=== PATIENT | male | born 1955 | race Caucasian/White ===

== ENCOUNTER 2016-07-11 06:33 | Inpatient (IN) | payer BC ==
[~2016-07-11] VITALS: Ht 180.3 cm; Wt 83.7 kg
[~2016-07-11 06:33] MED LIST: ASPIR 8181 MG PO; FER300 PO; GOOD SENSE OMEP20 MG PO; LISINOPRIL10 MG PO; METOPROLOL TART25 M1 PO; PRESTIQ PO; SIMVASTATIN10 M1 PO; TRAMADOL HCL50 MG PO; ZES10 PO
[2016-07-11 07:20] LABS: BASOPHIL % 0.5 % (0-2); PLATELET COUNT 247 x10^3mcL (130-400); RED CELL DISTRIBUTION WIDTH 13.7 % (11.5-14.5)
[2016-07-11 07:26] LABS: CALCIUM 9.3 mg/dL (8.5-10.1); CARBON DIOXIDE 24.5 mmol/L (21-32); CHLORIDE SERUM 102 mmol/L (98-107); GFR1 > 60 mL/min; GLUCOSE SERUM 117 mg/dL (74-106); SODIUM SERUM 138 mmol/L (136-145)
[2016-07-11 07:31] LABS: ALBUMIN 3.9 g/dL (3.4-5.0); ALKALINE PHOSPHATASE 92 U/L (46-116); ALT/SGPT 53 U/L (16-63); AST/SGOT 28 U/L (15-37); LIPASE 235 IU/L (73-393); TOTAL PROTEIN, SERUM 7.3 g/dL (6.4-8.2)
[2016-07-11] MEDS ORDERED: ZESTRIL5 MG PO (07:58)
[2016-07-11] MEDS ORDERED: LIPI10 PO (07:58)
[2016-07-11 08:33] LABS: CHOLESTEROL/HDL RATIO 2.6; PHOSPHOROUS 4.2 mg/dL (2.5-4.9)
[2016-07-11 08:37] LABS: T3 TOTAL 1.12 ng/mL
[2016-07-11 08:42] LABS: FREE T4 0.9 ng/dL (0.76-1.46); FREE THYROXINE INDEX 2.5 ug/dL (1.4-4.5)
[2016-07-11 10:34] VITALS: BP 145/85
[2016-07-11 14:00] VITALS: BP 121/78
[2016-07-11 17:29] VITALS: BP 115/63
[2016-07-11 21:21] VITALS: BP 124/72
[2016-07-11 21:22] LABS: microscopic required? NO
[2016-07-11 21:30] LABS: urine erythrocyte NEGATIVE (NEGATIVE)
[2016-07-11 21:39] LABS: AMPHETAMINE QUAL UR NONE DETECTED (NEG <=1000)
[2016-07-12 05:27] VITALS: BP 122/71
[2016-07-12 05:59] LABS: BASOPHIL % 0.5 % (0-2); PLATELET COUNT 232 x10^3mcL (130-400); RED CELL DISTRIBUTION WIDTH 13.9 % (11.5-14.5)
[2016-07-12 06:19] LABS: CALCIUM 8.6 mg/dL (8.5-10.1); CARBON DIOXIDE 26.1 mmol/L (21-32); CHLORIDE SERUM 108 mmol/L (98-107); CREATININE SERUM 0.9 mg/dL (0.7-1.3); GFR1 > 60 mL/min; GLUCOSE SERUM 99 mg/dL (74-106); POTASSIUM SERUM 4.2 mmol/L (3.5-5.1); SODIUM SERUM 142 mmol/L (136-145)
[2016-07-12 10:36] VITALS: BP 117/73
[2016-07-12 13:34] VITALS: BP 128/83
[2016-07-12] MEDS ORDERED: MECLIZINE HCL12.5 MG PO (16:18)
[2016-07-12 16:24] VITALS: BP 128/83
[2016-07-12 17:01] VITALS: BP 123/77
== END 2016-07-12 17:13 | disposition home or self-care (01) | DRG 74 ==
LOC: ED 06:33 → DU 07:40
PROVIDERS: Emergency Medicine; ADMIT Family Medicine
DX: G90.8 Other disorders of autonomic nervous system (principal); J98.11 Atelectasis; E78.00 Pure hypercholesterolemia, unspecified; F32.9 Major depressive disorder, single episode, unspecified; I10 Essential (primary) hypertension; Z95.5 Presence of coronary angioplasty implant and graft; Z83.3 Family history of diabetes mellitus; Z82.3 Family history of stroke; Z82.49 Family history of ischemic heart disease and other diseases of the circulatory system; Z80.9 Family history of malignant neoplasm, unspecified; I25.2 Old myocardial infarction; Z82.0 Family history of epilepsy and other diseases of the nervous system
CPT/HCPCS: 83880; 84439; 94150; C9113; J7030; J8597; Q0092

== ENCOUNTER 2018-09-29 04:17 | Observation (INO) | payer BC ==
[~2018-09-29] VITALS: Ht 177.8 cm; Wt 85.9 kg
[~2018-09-29 04:17] MED LIST changes: +LIPI10 PO; +MECLIZINE HCL12.5 MG PO; +ZESTRIL5 MG PO
[2018-09-29 04:27] VITALS: Ht 177.8 cm; Wt 85.9 kg
--- NOTE | 2018-09-29 05:52 | NUR ---
PT PRESENTS TO ED FOR EVAL OF NAUSEA, ANXIETY AND GENERALIZED BACK PAIN X2 HOURS; STS WOKE UP AT 03:30 WITH THESE SYMPTOMS. PT STS ALSO CHECK HIS BP AT HOME AND IT WAS 162/97, 166/90, AND 162/98 AT 03:58 ON THE L ARM. AT THIS TIME PT C/O BACK PAIN, RATES 7/10, CONSTANT AND PRESSURE LIKE AT THIS TIME. ALSO C/O NAUSEA, STS ANXIETY HAS CALMED SOMEWHAT. ON INITIAL CONTACT PT AAOX4, GCS 15. RESP E/U, LUNG SOUNDS CTAB, S1 S2 AUSCULTATED. DENIES CP. ABDOMEN SOFT/NONTENDER/NONDISTENDED. APPEARS IN NO DISTRESS. MOVES ALL EXTREMITIES. SKIN W/D/I. PT PLACED ON CM AND PULSE OX, VSS AT THIS TIME. AWAITING MSE.
--- NOTE | 2018-09-29 06:39 | NUR ---
DR KEITA AT BEDSIDE
--- NOTE | 2018-09-29 06:57 | NUR ---
LAB AT BEDSIDE FOR BLOOD DRAW.
--- NOTE | 2018-09-29 07:03 | NUR ---
AMBULATORY TO RESTROOM TO OBTAIN URINE SPECIMEN
[2018-09-29 07:13] LABS: microscopic required? NO
[2018-09-29 07:18] LABS: BASOPHIL % 0.3 % (0-2); PLATELET COUNT 222 x10^3mcL (130-400); RED CELL DISTRIBUTION WIDTH 12.4 % (11.5-14.5)
--- NOTE | 2018-09-29 07:21 | NUR ---
PT SITTING UP IN BED, IN NAD. RESP EVEN AND UNLABORED, ON RA @ 95%, DENIES ANY SOB OR CP AT THIS TIME. SKIN W/D/I, MEDICATED ORDERED. WILL CONT TO MONITOR.
[2018-09-29 07:25] LABS: urine erythrocyte NEGATIVE (NEGATIVE)
[2018-09-29 07:28] LABS: CALCIUM 8.5 mg/dL (8.5-10.1); CARBON DIOXIDE 23.3 mmol/L (21-32); CHLORIDE SERUM 104 mmol/L (98-107); GFR1 > 60 mL/min; GLUCOSE SERUM 129 mg/dL (74-106); POTASSIUM SERUM 4.2 mmol/L (3.5-5.1); SODIUM SERUM 139 mmol/L (136-145)
--- NOTE | 2018-09-29 07:31 | NUR ---
DR FLANAGAN AWARE THAT PT REFUSED NITRO, STATESHE HAS NO CHEST PAIN.
[2018-09-29 07:37] LABS: AMPHETAMINE QUAL UR NONE DETECTED (See below)
[2018-09-29 07:41] LABS: ALBUMIN 3.6 g/dL (3.4-5.0); ALKALINE PHOSPHATASE 75 U/L (46-116); ALT/SGPT 43 U/L (16-63); AST/SGOT 27 U/L (15-37); BILIRUBIN TOTAL 0.6 mg/dL (0.20-1.00); HDL CHOLESTEROL 40 mg/dL (40-60); LIPASE 131 IU/L (73-393); T4(THYROXINE) 6.1 ug/dL (4.7-13.3); TOTAL PROTEIN, SERUM 6.7 g/dL (6.4-8.2)
[2018-09-29 07:43] LABS: CHOLESTEROL 122 mg/dL (<200)
--- NOTE | 2018-09-29 08:29 | NUR ---
NO ACUTE CHNAGES, PT WITH EYES CLOSED, IN NAD.
--- NOTE | 2018-09-29 09:33 | NUR ---
ADMIT ORDER RECIEVED FROM DR GUO,
--- NOTE | 2018-09-29 10:17 | NUR ---
REPORT GIVEN TO JOHN RN, UPDATED ON STATUS, LABS AND VITALS.
[2018-09-29] MEDS ORDERED: TOPROL XL25 MG PO (10:41)
--- NOTE | 2018-09-29 11:15 | NUR ---
RECEIVED PT FROM ED, A/A/OX4 DENIES WOOD. RESP EVEN AND UNLABORED WITH CLEAR BREATH SOUNDS BILAT. DENIES ANY SOB/CP/PRESSURE AT THIS TIME. PLACED ON TELE #29 SHOWING NSR HR IN 60S. NO EDEMA NOTED WITH PALPABLE PERIPHERAL PULSES. IV SL TO RAC. ABD SOFT, NONTENDER WITH ACTIVE BS X4. DENIES ANY N/V AT THIS TIME. VOIDING FREELY AND AMBULATORY. ORIENTED TO ROOM AND CALL LIGHT SYSTEM. CALL LIGHT IN REACH NEEDS ATTENDED TO.
[2018-09-29 11:25] VITALS: BP 107/64
[2018-09-29 18:15] VITALS: BP 114/68
--- NOTE | 2018-09-29 18:39 | NUR ---
PT RESTING AT THIS TIME. DENIES ANY DISCOMFORT. NO EPISODES OF CP REPORTED. WITH SCHEDULED [facility] AT 1130 AM TOMORROW. MADE AWARE OF CLEAR LIQUID BREAKFAST DIET. CALL LIGHT IN REACH NEEDS ATTENDED TO.
--- NOTE | 2018-09-29 19:28 | NUR ---
RECEIVED PT FROM PREVIOUS SHIFT. PT A/OX4. DENIES PAIN. DENIES SOB ON RA. IV PATENT AND INFUSING NS AT 80ML/HR WITH NO S/S OF INFILTRATION. FAMILY AT BEDSIDE. CALL LIGHT WITHIN REACH, BED IN LOW POSITION. WILL CONTINUE TO MONITOR.
[2018-09-29 20:51] VITALS: BP 113/70
--- NOTE | 2018-09-29 22:07 | NUR ---
PT C/O 06/19 THROBBING WOOD. TYLENOL GIVEN PO PER EMAR.
--- NOTE | 2018-09-30 00:51 | NUR ---
PT RESITNG IN NO ACUTE DISTRESS. RR EVEN AND UNLABORED. CALL LIGHT WITHIN REACH, BED IN LOW POSITION. CALL LIGHT WITHIN REACH, BED IN LOW POSITION. WILL CONTINUE TO MONITOR.
[2018-09-30 05:31] VITALS: BP 112/72
[2018-09-30 07:11] LABS: CHOLESTEROL/HDL RATIO 3.2
[2018-09-30] MEDS ORDERED: NIT0.4 SL (08:02)
[2018-09-30 08:24] VITALS: BP 118/72
--- NOTE | 2018-09-30 11:53 | NUR ---
SPOKE WITH DR NIX. DR STATED THAT PATIENT IS OK TO BE DISCHARGED WITH [facility] DONE OUTPATIENT. DISCHARGE PRESCRIPTIONS PLACED IN CHART. WILL NOTIFY DR GUO AND CONFIRM DISCHARGE.
[2018-09-30 12:00] VITALS: BP 136/88
--- NOTE | 2018-09-30 12:03 | NUR ---
DR GUO PAGED FOR DISCHARGE CONFIRMATION AND LAB DRAW FOLLOW UP WITH POSSIBLE CANCELLATION.
[2018-09-30 12:41] VITALS: BP 136/88
--- NOTE | 2018-09-30 12:48 | NUR ---
SPOKE WITH DR GUO TO CONFIRM OK TO DISCHARGE.
--- NOTE | 2018-09-30 14:07 | NUR ---
PT STABLE FOR DISCHARGE PER DR GUO. DISCHARGE INSTRUCTIONS AND SUMMARY DISCUSSED WITH PATIENT. PATIENT VERBALIZED UNDERSTANDING AND AGRESS TO FOLLOW UP WITH PRIMARY CARE DOCTOR AND PERFORM OUTPATIENT STRESS TEST. ALL QUESTIONS AND CONCERNS ADDRESSED. IV REMOVED AND IV POLE CLEARED. TELE MONITOR REMOVED AND MONITOR NOTIFIED. PT ESCORTED TO LOBBY.
== END 2018-09-30 14:07 | disposition home or self-care (01) | DRG 305 ==
LOC: ED 04:17 → DU 09:37
PROVIDERS: Emergency Medicine; Internal Medicine Cardiovascular Disease; ADMIT Internal Medicine
DX: I16.0 Hypertensive urgency (principal); R07.9 Chest pain, unspecified; I11.9 Hypertensive heart disease without heart failure; I25.10 Atherosclerotic heart disease of native coronary artery without angina pectoris; E11.9 Type 2 diabetes mellitus without complications; E78.5 Hyperlipidemia, unspecified; F41.9 Anxiety disorder, unspecified; F32.9 Major depressive disorder, single episode, unspecified; I25.2 Old myocardial infarction; Z95.5 Presence of coronary angioplasty implant and graft; Z87.891 Personal history of nicotine dependence; Z79.84 Long term (current) use of oral hypoglycemic drugs
CPT/HCPCS: 82962; 83880; G0378; J1644; J7030; Q0092